=== PATIENT | female | born 2005 | race African-American/Black ===

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

== ENCOUNTER 2025-06-12 23:56 | Emergency (ER) | payer OTHER, SELFPAY ==
[2025-06-13] MEDS ORDERED: Dexamethasone 10 MG/ML VIAL ONE (00:29)
[2025-06-13] MEDS ORDERED: diphenhydrAMINE 25 MG CAP ONE (00:29)
== END 2025-06-13 00:53 | disposition home or self-care (01) ==
LOC: ERS 23:56
DX: L30.9 Dermatitis, unspecified (principal); J45.909 Unspecified asthma, uncomplicated; Z79.51 Long term (current) use of inhaled steroids
CPT/HCPCS: 99282; J1100